=== PATIENT | male | born 1960 | race Caucasian/White ===

== ENCOUNTER → 2017-02-08 | Outpatient (CLI) | payer MEDICAID ==
--- NOTE | 2017-02-08 16:52 | XR ---
Bilateral shoulders HISTORY: Pain 3 views of both shoulders are submitted Bone mineralization, joint spaces and alignment are maintained. Lung apices are unremarkable. Mild ar thropathy of the acromioclavicular joint suspected. IMPRESSION: Mild acromioclavicular joint arthropathy.
--- NOTE | 2017-02-08 16:53 | XR ---
EXAMINATION TYPE: XR Hip Bilateral and AP pelvis DATE OF EXAM: 02/08/2017 COMPARISON: NONE HISTORY: Pain TECHNIQUE: A single AP view of the pelvis is obtained. Two views of the bilateral hip are obtained. FINDINGS: There is no acute fracture/dislocation evident in the pelvis. The hip and sacroiliac join ts appear symmetric and unremarkable. The overlying soft tissue appears unremarkable. Two views of bilateral hip show no acute fracture or dislocation. No focal lytic or sclerotic lesion seen in the proximal bilateral femur. The overlying soft tissue is unremarkable. Mild scoliotic cu rvature is suspected of the lumbar spine. IMPRESSION: There is no acute fracture or dislocation in the pelvis or bilateral hip. There may be s morris curvature.
== END | disposition home or self-care (01) ==
LOC: RADXRMAIN 15:04
PROVIDERS: ATTEND Family Medicine
DX: M12.811 Other specific arthropathies, not elsewhere classified, right shoulder (principal); M12.812 Other specific arthropathies, not elsewhere classified, left shoulder
CPT/HCPCS: 73521

== ENCOUNTER → 2018-09-30 | Outpatient (CLI) | payer MEDICAID ==
--- NOTE | 2018-09-30 21:18 | US ---
EXAMINATION TYPE: US liver DATE OF EXAM: 09/30/2018 COMPARISON: NONE CLINICAL HISTORY: R74.8 Elevated Liver Enzymes. EXAM MEASUREMENTS: Liver Length: 16.2 cm Gallbladder Wall: Seen with certainty and may be contracted CBD: not seen Right Kidney: 13.3 x 5.1 x 5.8 cm Pancreas: not visualized due to midline bowel gas Liver: extremely difficult to penetrate, loss of vascular landmarks. Limited visualization. Gallbladder: Not seen with certainty. Evidence for sonographic Larson's sign: No CBD: not identified Right Kidney: No hydronephrosis or masses seen IMPRESSION: 1. Exam is limited. Increased echo pattern of liver can be seen with hepatic steatosis, hepatitis or diffuse hepatocellular disease. 2. Gallbladder is not seen with certainty and likely is contracted. If clinically warranted given the limitation of this exam CT scan could be obtained.
== END ==
LOC: RADUSMAIN 15:48
PROVIDERS: ATTEND Family Medicine
DX: R74.8 Abnormal levels of other serum enzymes (principal)
CPT/HCPCS: 76705

== ENCOUNTER → 2018-09-30 | Outpatient (CLI) | payer MEDICAID ==
--- NOTE | 2018-10-01 11:08 | MR ---
EXAMINATION TYPE: MR shoulder LT wo con DATE OF EXAM: 09/30/2018 COMPARISON: none HISTORY: Pain in left shoulder TECHNIQUE: Multiplanar, multisequence imaging of the left shoulder is performed without contrast. FINDINGS: Rotator Cuff: There is increased signal along the anterior fibers at the insertion of the supraspinat us tendon compatible with partial through thickness tear measuring approximately 6 mm. No retraction. There is increased intrasubstance signal involving the remaining portion of the supraspinatus insert ion and infraspinatus tendon compatible tendinosis. Thinning of the tendinous structures may represen t fraying and partial intrasubstance tear. Subscapularis tendon has a normal appearance. Acromioclavicular Joint: Hypertrophic change and arthropathy of the AC joint results in impingement a nd mass effect upon the supraspinatus tendon and muscle. Glenohumeral Joint: No sizable joint effusion. Labrum: Findings are suspicious for a posterior superior labral tear Biceps Tendon: The long head of biceps is in normal location within bicipital groove. Bone marrow signal: No focal abnormal marrow signal is appreciated. IMPRESSION: 1. Tendinosis of the distal supraspinatus and infraspinatus tendon with a partial through thickness t ear measuring 6 mm involving the anterior fibers of the supraspinatus tendon. Thinning and irregulari ty of the insertion of the remaining portion of the supraspinatus and infraspinatus tendon may repres ent fraying and partial intrasubstance tear. 2. Impingement secondary to arthropathy of the AC joint.
== END | disposition home or self-care (01) ==
LOC: RADMRIMAIN 15:49
PROVIDERS: ATTEND Orthopaedic Surgery
DX: M75.102 Unspecified rotator cuff tear or rupture of left shoulder, not specified as traumatic (principal); M19.012 Primary osteoarthritis, left shoulder

== ENCOUNTER 2019-06-06 07:22 | Day surgery (SDC) | payer MEDICAID ==
[2019-06-02 12:53] VITALS: BMI 28.1
[~2019-06-06 07:22] MED LIST: LACTATED RINGERS 1,000 ML IV SCH; LIDOCAINE 1% 20 ML VIAL (10MG/ML) FOR IV START INTRADERMA PRN
[2019-06-06 08:04] VITALS: TEMP 98.1
[2019-06-06] MEDS ORDERED: PROPOFOL 10 MG/ML 20 ML VIAL IV ONE (08:06)
[2019-06-06] MEDS ORDERED: LIDOCAINE 1% INJ 10MG/ML (20 ML MDV) ONE (08:06)
--- NOTE | 2019-06-06 08:34 | P.PCN ---
Date of Procedure: 06/06/19 Description of Procedure: BRIEF HISTORY: Patient is a 58-year-old male who presents for outpatient colonoscopy for evaluation of history of polyps. Last colonoscopy 4 years for polypectomy with 4 polyps removed to measuring greater than 1 cm in size. He denies any family history of colon cancer, change in bowel habits, abdominal pain or blood per rectum. PROCEDURE PERFORMED: Colonoscopy. PREOPERATIVE DIAGNOSIS: History of colon polyps, last colonoscopy 4 years ago with polyps removed. ESTIMATED BLOOD LOSS: Minimal. IV sedation per Anesthesia. PROCEDURE: After informed consent was obtained, the patient, was brought into the endoscopy unit. IV sedation was administered by Anesthesia under continuous monitoring. Digital rectal examination was normal. Initially the Olympus CF-190 flexible video colonoscope was then inserted in the rectum, gradually advanced into the cecum without any difficulty. Careful examination was performed as the scope was gradually being withdrawn. Ileocecal valve and the appendiceal orifice were visualized and appeared normal. Prep was excellent. Mucosa of the cecum, ascending colon, transverse colon, descending colon, sigmoid colon, and rectum appeared normal, low-grade internal hemorrhoids seen. Retroflexion was performed in the rectum and no lesions were seen. The patient tolerated the procedure well. IMPRESSION: Normal-appearing colon from rectum to cecum. RECOMMENDATIONS: Findings of this examination were discussed with the patient and his family. Okay to resume diet. Okay to resume medications. Would recommend repeat colonoscopy in 5 years for personal history of colon polyps.
[2019-06-06 08:35] VITALS: RESP 16
[2019-06-06 08:50] VITALS: BP 143/86; PULSE 50
== END 2019-06-06 09:04 | disposition home or self-care (01) ==
LOC: ORWHC2ENDO 07:22
PROVIDERS: ATTEND Internal Medicine
DX: Z12.11 Encounter for screening for malignant neoplasm of colon (principal); Z86.010 Personal history of colon polyps; K64.8 Other hemorrhoids; E78.5 Hyperlipidemia, unspecified; K21.9 Gastro-esophageal reflux disease without esophagitis; Z79.891 Long term (current) use of opiate analgesic; Z88.6 Allergy status to analgesic agent; Z88.8 Allergy status to other drugs, medicaments and biological substances; Z87.891 Personal history of nicotine dependence; Z79.899 Other long term (current) drug therapy
CPT/HCPCS: J2001; J2704; G0121

== ENCOUNTER → 2022-06-22 | Outpatient (CLI) | payer MEDICAID ==
--- NOTE | 2022-06-22 12:30 | MR ---
EXAMINATION TYPE: MR knee LT wo con DATE OF EXAM: 06/22/2022 COMPARISON: None HISTORY: Lt knee pain, internal derangement TECHNIQUE: Multiplanar, multisequence imaging of the left knee is performed without IV contrast. FINDINGS: There is edema and abnormal thickening near the origin of the MCL compatible with MCL strai n and partial tear involving the anterior fibers of the MCL near its origin and proximal course. No t hrough thickness tear or retraction. There is a oblique tear involving the posterior horn of the medial meniscus. Lateral meniscus intact. There is a metal artifact anteriorly distorts the images. Small amount of subcutaneous edema in the p repatellar region. Patellar and quadriceps tendons are limited in assessment but grossly intact as vi sualized. There is a small amount of joint fluid but the ACL and PCL are intact. Lateral collateral ligament in tact. Joint spaces demonstrate no evidence for erosive change. There is fibrillation and chondromalacia inv olving the medial femoral articular surface. There is a small Aguirre's cyst measuring 1 x 0.8 x 2 cm. IMPRESSION: 1. Findings are suggestive of MCL sprain and partial tear anterior fibers of the origin and proximal aspect. No through thickness tear or retraction. 2. Oblique posterior horn medial meniscal tear 3. Small knee joint effusion. 4. 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 5. Intraosseous 8mm lesion medial distal femur most likely related to bone island could be correlated with plain film x-ray.
== END | disposition home or self-care (01) ==
LOC: RADMRIMAIN 08:21
PROVIDERS: ATTEND Family Medicine
DX: M23.222 Derangement of posterior horn of medial meniscus due to old tear or injury, left knee (principal); M94.262 Chondromalacia, left knee; M25.462 Effusion, left knee; M89.9 Disorder of bone, unspecified

== ENCOUNTER 2022-11-24 09:57 | Day surgery (SDC) | payer MEDICAID ==
[2022-11-23 11:04] VITALS: BMI 31.1
[2022-11-24 11:10] VITALS: RESP 16; TEMP 97.8
[2022-11-24] MEDS ORDERED: LACTATED RINGERS 1,000 ML IV ONE (11:10)
[2022-11-24 11:18] LABS: Glucose,Whole Blood 98 mg/dL (70-110)
[2022-11-24] MEDS ORDERED: LIDOCAINE 2% INJ 20 MG/ML (2 ML VIAL) ONE (12:21)
[2022-11-24] MEDS ORDERED: PROPOFOL 10 MG/ML 20 ML VIAL IV ONE (12:21)
--- NOTE | 2022-11-24 12:30 | P.PCN ---
Date of Procedure: 11/24/22 Procedure(s) Performed: BRIEF HISTORY: Patient is a 62-year-old, pleasant, white male scheduled for an upper endoscopy as part of evaluation of intermittent dysphagia to solids for the last few months he also has long-standing history of GERD and is on omeprazole 20 mg daily for several years. PROCEDURE PERFORMED: Esophagogastroduodenoscopy with biopsy. PREOPERATIVE DIAGNOSIS: Long-standing history of GERD/intermittent dysphagia to solids. IV sedation per anesthesia. PROCEDURE: After informed consent was obtained, the patient was brought into the endoscopy unit. IV sedation was administered by Anesthesia under continuous monitoring. Initially the Olympus GIF-140 video endoscope was inserted into the mouth. Esophagus intubated without any difficulty. It was gradually advanced into the stomach and duodenum and carefully examined. The bulb and the second part of the duodenum appeared normal. The scope at this time was withdrawn to the stomach, adequately insufflated with air, and upon careful examination, mucosa of the antrum, body, cardia and the fundus appeared normal. Multiple small gastric polyps noted in the gastric body which were biopsied. The scope was then withdrawn into the esophagus. The GE junction was located at 41 cm from the incisors. The esophagus appeared normal. No evidence of esophageal stricture. There were no erosions or ulcerations seen, biopsies were done from the mid and distal esophagus to evaluate for years of age esophagitis and the patient tolerated the procedure well. IMPRESSION: 1. Normal-appearing esophagus with no evidence of esophagitis or esophageal stricture. 2. Multiple small gastric polyps status post biopsy. RECOMMENDATIONS: The findings of this examination were discussed with the patient as well as his family. He was advised to continue with omeprazole 20 mg daily and follow antireflux measures. Follow with the biopsy results..
[2022-11-24] MEDS ORDERED: hydrALAZINE HCL 20 MG/ML 1 ML VIAL ONE ×2 (12:56→13:19)
[2022-11-24] MEDS ORDERED: hydrALAZINE HCL 20 MG/ML 1 ML VIAL IVP ONE ×2 (12:59→13:21)
[2022-11-24 14:06] VITALS: BP 146/75; PULSE 60
== END 2022-11-24 14:03 | disposition home or self-care (01) ==
LOC: ORWHC2ENDO 09:57
PROVIDERS: ATTEND Internal Medicine Gastroenterology
DX: K31.7 Polyp of stomach and duodenum (principal); K21.00 Gastro-esophageal reflux disease with esophagitis, without bleeding; E78.5 Hyperlipidemia, unspecified; Z88.8 Allergy status to other drugs, medicaments and biological substances; Z79.899 Other long term (current) drug therapy; Z87.891 Personal history of nicotine dependence
CPT/HCPCS: 88305; 43239; J0360; J2704; J2001

== ENCOUNTER 2023-10-24 13:16 | Emergency (ER) | payer MEDICAID ==
--- NOTE | 2023-10-24 13:42 | ED ---
Headache HPI - General Chief Complaint: Headache Stated Complaint: Headache Time Seen by Provider: 10/24/23 13:27 Source: patient, RN notes reviewed Mode of arrival: ambulatory Limitations: no limitations - History of Present Illness Initial Comments: This is a 63-year-old male who presents to the emergency department for a headache. States that 3 to 4 days ago he developed a sudden onset headache that started in the back of his neck and shot up to the back and top of his head. He was taking a shower when this occurred. He had associated nausea and photophobia. Symptoms persisted into the next day. He states that he has not been able to eat or drink due to the pain and nausea. He has had headaches in the past but nothing like this. Denies any fever/chills. Denies any chest pain/shortness of breath or upper respiratory symptoms. Taking Tylenol with no relief in symptoms. Notes that the severity of the headache has improved compared to when it first began. MD Complaint: headache - Related Data Home Medications Medication Instructions Recorded Confirmed Ezetimibe [Zetia] 1 tab PO DAILY 10/10/14 11/24/22 Fenofibrate,Micronized 160 mg PO DAILY 10/10/14 11/24/22 [Fenofibrate] Flaxseed [Flaxseed Oil] 3,000 mg PO DAILY 10/10/14 11/24/22 Omeprazole [PriLOSEC] 20 mg PO DAILY 10/10/14 11/24/22 Ubidecarenone [Co Q-10] 200 mg PO DAILY 10/10/14 11/24/22 Empagliflozin/Metformin HCl 1 tab PO DAILY 11/24/22 11/24/22 [Synjardy Xr 25-1,000 mg Tablet] Allergies Allergy/AdvReac Type Severity Reaction Status Date / Time aspirin Allergy Rash/Hives Verified 11/24/22 11:04 Jwnzgnj-PPJ-NmK Reductase Allergy muscle pain Verified 11/24/22 11:04 Inhibitor [Wxedzgi-Smn-Pkr Reductase Inhibitor] Review of Systems ROS Statement: Those systems with pertinent positive or pertinent negative responses have been documented in the HPI. ROS Other: All systems not noted in ROS Statement are negative. Past Medical History Past Medical History: Chest Pain / Angina, Diabetes Mellitus, GERD/Reflux, Hyperlipidemia Additional Past Medical History / Comment(s): past hx. chest pain occ but c ardiac tests neg per pt, hx. 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 History of Any Multi-Drug Resistant Organisms: None Reported Past Surgical History: No Surgical Hx Reported, Orthopedic Surgery Additional Past Surgical History / Comment(s): colonoscopy ,egd, carpal tunnel , left knee torn meniscus 08/13 Past Anesthesia/Blood Transfusion Reactions: No Reported Reaction Past Psychological History: No Psychological Hx Reported Smoking Status: Current every day smoker, Vaper Past Alcohol Use History: Occasional Past Drug Use History: Marijuana - Past Family History Father Family Medical History: Cancer General Exam Limitations: no limitations General appearance: alert, in no apparent distress Head exam: Present: atraumatic, normocephalic, normal inspection Eye exam: Present: normal appearance, PERRL, EOMI. Absent: scleral icterus, conjunctival injection, periorbital swelling Respiratory exam: Present: normal lung sounds bilaterally. Absent: respiratory distress, wheezes, rales, rhonchi, stridor Cardiovascular Exam: Present: regular rate, normal rhythm, normal heart sounds. Absent: systolic murmur, diastolic murmur, rubs, gallop, clicks Neurological exam: Present: alert, oriented X3, CN II-XII intact Expanded Cerebellar function: Finger to Nose: Normal, Heel to Srinivasan: Normal, Romberg: Normal Motor strength exam: RUE: 5, LUE: 5, RLE: 5, LLE: 5 Psychiatric exam: Present: normal affect, normal mood Skin exam: Present: warm, dry, intact, normal color. Absent: rash Course Vital Signs 10/24/23 10/24/23 10/24/23 13:19 16:02 16:30 Temperature 97.8 F Pulse Rate 53 L 52 L 55 L Respiratory 16 18 16 Rate Blood Pressure 168/94 177/94 173/99 O2 Sat by Pulse 99 98 98 Oximetry 10/24/23 10/24/23 10/24/23 16:45 17:00 17:31 Temperature Pulse Rate 66 52 L 57 L Respiratory 16 19 18 Rate Blood Pressure 173/97 166/93 154/85 O2 Sat by Pulse 96 96 95 Oximetry Medical Decision Making - Medical Decision Making This is a 63 year old male who presents to the emergency department for a headache. Was pt. sent in by a medical professional or institution? @ -No Did you speak to anyone other than the patient for history? @ -No Did you review nursing and triage notes? @ -Yes, and I agree, it is accurate with regards to the patient's symptoms. Were old charts reviewed? @ -No Differential Diagnosis? @ -Differential Headache: Migraine, tension, cluster, carbon monoxide, central venous thrombosis, pension karma temporal arteritis, acute closure glaucoma, intercranial hemorrhage, mastoiditis, sinusitis, head injury, this is not meant to be an all-inclusive list. EKG interpreted by me (3pts min.)? @ -EKG interpreted by me demonstrating the following: Sinus bradycardia. Ventricular rate 51 bpm, KS interval 134 ms, QRS duration 98 ms, QTc 394 ms. X-rays interpreted by me (1pt min.)? @ -Not obtained CT interpreted by me (1pt min.)? @ -CT scan of the brain obtained. My interpretation identifies subarachnoid hemorrhages. CTA of the head and neck obtained. My interpretation again identifies the subarachnoid hemorrhages. U/S interpreted by me (1pt. min.)? @ -Not obtained What testing was considered but not performed? (CT, X-rays, U/S, labs)? Why? @ -None What meds were considered but not given? Why? @ -None Did you discuss the management of the patient with other professionals? @ -ED attending Dr. Benjamin discussed the case with Dr. Chandler, conference concierge neurointensivist who requested transfer to [facility]. I spoke with Cara the [employer] with the neurointerventionalist group to give patient report prior to transfer. This will be a direct admit to the neurosurgical ICU. Did you reconcile home meds? @ -No Was smoking cessation discussed for >3mins.? @ -No Was critical care preformed (if so, how long)? @ -No Were there social determinants of health that impacted care today? How? (Homelessness, low income, unemployed, alcoholism, drug addiction, transportation, low edu. Level, literacy, decrease access to med. care, fdc, rehab)? @ -No Was there de-escalation of care discussed even if they declined? (Discuss DNR or withdrawal of care, Hospice)? @ -No What co-morbidities impacted this encounter? (DM, HTN, Smoking, COPD, CAD, Cancer, CVA, Hep., AIDS, mental health diagnosis, sleep apnea, morbid obesity)? @ -DM, HLD Was patient admitted / discharged? @ -Lab work unremarkable. COVID, influenza, and RSV testing were negative. CT scan of the brain demonstrates scattered small subarachnoid hemorrhages, mostly in the basal cisterns including the interpeduncular cistern, anterior suprasellar cistern and likely extending along the right MCA as well as the prepontine cistem. CTA of the head demonstrates no intracranial large vessel occlusion, hemodynamically significant stenosis, dissection, AVM, or sizable aneurysm. CTA of the neck is patent. Patient is not on any blood thinners and he does not take hypertensive medication at home. Patient has no neurological deficits. He was hypertensive in the emergency department and given 10 mg of labetalol followed by an additional 10mg shortly afterwards. Head of the bed also kept elevated at [address] Benjamin spoke with Dr. Chandler, on-call neurointensivist. He requested transfer to [facility]. Case discussed with nurse practitioner Cara with the neurointerventional group. Patient will be directly admitted to the neuro ICU at [facility]. Undiagnosed new problem with uncertain prognosis? @ -None Drug Therapy requiring intensive monitoring for toxicity (Heparin, Nitro, Insulin, Cardizem)? @ -None Were any procedures done? @ -None Diagnosis/symptom? @ -Subarachnoid hemorrhage Acute, or Chronic, or Acute on Chronic? @ -Acute Uncomplicated (without systemic symptoms) or Complicated (systemic symptoms)? @ -Complicated Side effects of treatment? @ -None Exacerbation, Progression, or Severe Exacerbation] @ -Not applicable Poses a threat to life or bodily function? @ -Yes This case was discussed in detail with the attending ED physician, Dr. Benjamin. Presentation, findings, and treatment plan discussed in detail as well. - Lab Data Result diagrams: 10/24/23 14:15 10/24/23 14:15 Lab Results 10/24/23 10/24/23 10/24/23 Range/Units 14:15 14:15 14:15 WBC 8.3 (3.8-10.6) k/uL RBC 5.81 (4.30-5.90) m/uL Hgb 18.2 H (13.0-17.5) gm/dL Hct 56.4 H (39.0-53.0) % MCV 97.0 (80.0-100.0) fL MCH 31.4 (25.0-35.0) pg MCHC 32.4 (31.0-37.0) g/dL RDW 13.6 (11.5-15.5) % Plt Count 267 (150-450) k/uL MPV 8.7 Neutrophils % 70 % Lymphocytes % 19 % Monocytes % 8 % Eosinophils % 1 % Basophils % 0 % Neutrophils # 5.8 (1.3-7.7) k/uL Lymphocytes # 1.6 (1.0-4.8) k/uL Monocytes # 0.6 (0-1.0) k/uL Eosinophils # 0.1 (0-0.7) k/uL Basophils # 0.0 (0-0.2) k/uL Sodium 142 (137-145) mmol/L Potassium 4.6 (3.5-5.1) mmol/L Chloride 105 (98-107) mmol/L Carbon Dioxide 23 (22-30) mmol/L Anion Gap 14 mmol/L BUN 18 (9-20) mg/dL Creatinine 0.75 (0.66-1.25) mg/dL Est GFR (CKD-EPI)AfAm >90 (>60 ml/min/1.73 sqM) Est GFR (CKD-EPI)NonAf >90 (>60 ml/min/1.73 sqM) Glucose 152 H (74-99) mg/dL Calcium 9.9 (8.4-10.2) mg/dL Phosphorus 2.7 (2.5-4.5) mg/dL Magnesium 2.2 (1.6-2.3) mg/dL Total Bilirubin 0.8 (0.2-1.3) mg/dL AST 26 (17-59) U/L ALT 35 (4-49) U/L Alkaline Phosphatase 55 (38-126) U/L Total Protein 7.7 (6.3-8.2) g/dL Albumin 4.6 (3.5-5.0) g/dL Influenza Type A (PCR) Not Detected (Not Detectd) Influenza Type B (PCR) Not Detected (Not Detectd) RSV (PCR) Not Detected (Not Detectd) SARS-CoV-2 (PCR) Not Detected (Not Detectd) - Radiology Data Radiology results: report reviewed, image reviewed Disposition Clinical Impression: Subarachnoid hemorrhage Disposition: OTHER INSTITUTION NOT DEFINED Referrals: Alex Ibarra MD [Primary Care Provider] - 1-2 days Time of Disposition: 17:08 - Out of Hospital Transfer - Req. Specs Out of Hospital Transfer - Requested Specifics: Neurological ICU ([facility])
[2023-10-24] MEDS: SODIUM CHLORIDE 0.9% 1,000 ML IV STA (14:16)
[2023-10-24] MEDS: DEXAMETHASONE SOD PHOSPHATE 10 MG/ML 1 ML VIAL IVP STA (14:17)
[2023-10-24] MEDS: KETOROLAC 15 MG/ML 1 ML VIAL IVP STA (14:18)
[2023-10-24] MEDS: diphenhydrAMINE 50 MG/ML 1 ML VIAL IVP STA (14:19)
[2023-10-24] MEDS: METOCLOPRAMIDE 5 MG/ML 2 ML VIAL IVP STA (14:21)
[2023-10-24] MEDS: ORPHENADRINE 30 MG/ML 2 ML VIAL IVP STA (14:23)
[2023-10-24 14:25] VITALS: TEMP 97.8
[2023-10-24 14:27] LABS: Basophils % (A) 0 %; Eosinophils # (A) 0.1 k/uL (0-0.7); Eosinophils % (A) 1 %; HGB 18.2 gm/dL (13.0-17.5); Lymphocytes # (A) 1.6 k/uL (1.0-4.8); Lymphocytes % (A) 19 %; MCH 31.4 pg (25.0-35.0); MCHC 32.4 g/dL (31.0-37.0); Mean Platelet Volume 8.7; Monocytes # (A) 0.6 k/uL (0-1.0); Monocytes % (A) 8 %; Neutrophils # (A) 5.8 k/uL (1.3-7.7); Neutrophils % (A) 70 %; Platelet Count 267 k/uL (150-450); RBC 5.81 m/uL (4.30-5.90); RDW 13.6 % (11.5-15.5); WBC 8.3 k/uL (3.8-10.6)
[2023-10-24 14:33] LABS: ALT 35 U/L (4-49); AST 26 U/L (17-59); African American GFR (CKD) >90 (>60 ml/min/1.73 sqM); Albumin 4.6 g/dL (3.5-5.0); Alkaline Phosphatase 55 U/L (38-126); Anion Gap 14 mmol/L; Blood Urea Nitrogen 18 mg/dL (9-20); Calcium 9.9 mg/dL (8.4-10.2); Carbon Dioxide 23 mmol/L (22-30); Chloride 105 mmol/L (98-107); Glucose 152 mg/dL (74-99); Magnesium 2.2 mg/dL (1.6-2.3); Non-African American GFR(CKD) >90 (>60 ml/min/1.73 sqM); Phosphorus 2.7 mg/dL (2.5-4.5); Potassium 4.6 mmol/L (3.5-5.1); Sodium 142 mmol/L (137-145); Total Bilirubin 0.8 mg/dL (0.2-1.3); Total Protein 7.7 g/dL (6.3-8.2)
[2023-10-24 14:46] LABS: HCT 56.4 % (39.0-53.0)
--- NOTE | 2023-10-24 15:40 | CT ---
EXAMINATION TYPE: CT brain wo con CT DLP: 1095.4 mGycm, Automated exposure control for dose reduction was used. DATE OF EXAM: 10/24/2023 2:42 PM COMPARISON: None.. CLINICAL INDICATION:Male, 63 years old with history of Headache, headache TECHNIQUE: Brain: Axial CT images of the brain were obtained with coronal and sagittal reformats created and rev iewed. Contrast used: None. Oral contrast used: None. FINDINGS: Small areas of increased attenuation in the basal cisterns, including anterior suprasellar cistern an d likely extending along the right MCA; clot in the MCA cannot be excluded in this setting. There is also focus of hemorrhage in the interpeduncular cistern, and hemorrhage along the prepontine cistern. Scattered tiny subarachnoid hemorrhages in the right superior parietal lobe as well. No clear evidence of parenchymal hemorrhage. No significant mass effect or midline shift. The ventric les appear normal in size and position. No loss of lo/white matter distinction is suggested. No acute calvarial abnormality is seen. Moderate nasal septal deviation towards the right. There are calcifications of the larger arteries noted near the skull base. Visualized paranasal sinuses are donis ar. Mastoid air cells are clear. The orbits and extracranial soft tissues show no acute abnormality. IMPRESSION: Scattered small subarachnoid hemorrhages, mostly in the basal cisterns including the interpeduncular cistern, anterior suprasellar cistern and likely extending along the right MCA, as well as the prepon chantell cistern.
[2023-10-24 16:29] VITALS: RESP 18
[2023-10-24] MEDS: LABETALOL 5 MG/ML VIAL MDV IVP STA ×2 (16:41→17:30)
--- NOTE | 2023-10-24 16:59 | CT ---
EXAMINATION TYPE: CT angio head neck DATE OF EXAM: 10/24/2023 4:13 PM COMPARISON: Earlier same day CT head noncontrast. CLINICAL INDICATION:Male, 63 years old with history of Subarachnoid hemorrhage; [facility], TECHNIQUE: Axially acquired helical CT angiogram of the head and neck was obtained with contrast. Axi al images are supplemented with 3D reconstructions which were post-processed at [facility] NASCET criteria used. Contrast used: 65 mL Isovue-370 IV Oral contrast used: None. CT DLP: 735.3 mGycm, Automated exposure control for dose reduction was used. FINDINGS: CTA Neck: A 3 vessel aortic arch is shown. Mild mixed plaque along the arch. No dissection flap is seen. Mild plaque at the origin of the left subclavian artery with mild stenosis. Right carotid system: The common carotid is patent. Mild mixed plaque at the carotid bifurcation and proximal branch vessels, without hemodynamically significant stenosis of the ECA or ICA. The ICA is t hereafter patent to the skull base. Left carotid system: The common carotid is patent. Mild mixed plaque at the carotid bifurcation and p roximal branch vessels, without hemodynamically significant stenosis of the ECA or ICA. The ICA is th ereafter patent to the skull base. Vertebral arteries: There is mild calcific plaque at the origin of the right vertebral with mild sten osis. There is no significant atherosclerotic plaque at the origin of the left vertebral. The vertebrals are then otherwise patent to the skull base. The left vertebral artery is dominant. Other: Visualized neck soft tissues show no concerning abnormality. Tiny hypodense nodule in the righ t thyroid. Included upper chest shows prominent mediastinal fat. Central airways are patent. Lung api marquita show mild/moderate emphysematous changes and scarring. No acute infiltrate or pneumothorax identi fied. Tiny 2 to 3 mm nodule in the left upper lobe. CTA Head: Proximal intracranial ICAs are patent. There is moderate calcification of the carotid siphons without critical stenosis seen. Carotid termini are patent. There is bilateral patency of the MCAs with norm al distal articulation pattern. Bilateral ACAs are patent. There is a patent anterior communicating a rtery. No sizable posterior communicating arteries are seen bilaterally. The bilateral intracranial vertebral arteries are patent, the left is dominant. Basilar artery opacif ies normally and is normal in caliber. Basilar tip is unremarkable, there is no evidence of sizable b asilar tip aneurysm. Visualized proximal supervisor grove bilaterally are patent. The dural venous sinuses appear grossly patent without evidence of thrombosis. There is a rounded def ect noted in the mid right transverse sinus, consistent with arachnoid granulation. Other: Please refer to earlier same day CT head report for findings. The subarachnoid hemorrhages sh ow no significant interval progression. No new hemorrhage is identified. No intracranial large vessel occlusion, hemodynamically significant stenosis, dissection, AVM, or siz able aneurysm demonstrated in the limits of CTA. Close CT follow-up is advised, and if and when clini juanito warranted recommend repeat CTA head be performed with thinnest slice sections available. IMPRESSION: CTA neck: 1. Patent neck CTA. 2. Mild atherosclerotic disease of the carotid bifurcations and proximal ICAs, without hemodynamical ly significant stenosis. 3. No evidence of dissection or pseudoaneurysm involving the vertebral or carotid arteries in the ne ck. CTA head: 1. Patent head CTA. No intracranial large vessel occlusion, hemodynamically significant stenosis, di ssection, AVM, or sizable aneurysm demonstrated in the limits of CTA. Close follow-up advised.
[2023-10-24 17:48] VITALS: BP 154/85; PULSE 57
== END 2023-10-24 17:50 | disposition other institution (70) ==
LOC: EC 13:16
DX: I60.9 Nontraumatic subarachnoid hemorrhage, unspecified (principal); R00.1 Bradycardia, unspecified; E11.9 Type 2 diabetes mellitus without complications; E78.5 Hyperlipidemia, unspecified; F17.290 Nicotine dependence, other tobacco product, uncomplicated; Z11.52 Encounter for screening for COVID-19; Z79.84 Long term (current) use of oral hypoglycemic drugs; Z79.899 Other long term (current) drug therapy; Z88.6 Allergy status to analgesic agent; Z88.8 Allergy status to other drugs, medicaments and biological substances
CPT/HCPCS: 99285; 96374; 96375 ×5; 96376; 96361; 36415; 93005; 80053; 83735; 84100; 85025; 87636; 70496; 70450; 70498; J1200; J1100; J2360; J2765; J1885; Q9967; J1920